=== PATIENT | female | born 1940 | race Native Hawaiian/Other Pacific Islander ===

== ENCOUNTER 2018-05-01 13:41 | Outpatient (CLI) | payer OTHER | END 2018-05-01 21:03 | disposition home or self-care (01) | LOC: RAD 13:41 | DX: M54.9 Dorsalgia, unspecified (principal); M41.9 Scoliosis, unspecified; I10 Essential (primary) hypertension ==

== ENCOUNTER 2022-06-21 08:59 | Outpatient (CLI) | payer OTHER ==
[2022-06-21 09:24] LABS: PLATELET COUNT 193 K/uL (152-353)
[2022-06-21 09:50] LABS: POTASSIUM 4.7 mmol/L (3.6-5.2)
== END 2022-06-21 20:09 | disposition home or self-care (01) ==
LOC: LABW 08:59
PROVIDERS: ATTEND Internal Medicine
DX: I10 Essential (primary) hypertension (principal); R53.83 Other fatigue
CPT/HCPCS: 36415; 80053; 80061; 82607; 82746; 84443; 85027